=== PATIENT | male | born 1955 | race Caucasian/White ===

== ENCOUNTER 2018-01-25 14:08 | Emergency (ER) | payer MEDICARE, MEDICAID ==
[~2018-01-25] VITALS: Ht 188 cm; Wt 99.8 kg
[~2018-01-25 14:08] MED LIST: CALTRATE 600 +1 EACH PO; CELEXA 20 MG TA20 MG PO; DEPAKOTE ER500 MG PO; ENALAPRIL MALEA10 M1 PO; FLEXERIL PO; FLOMAX; GABITRIL 4 MG PO; HYDROCHLOROTHIA25 M2 PO; IBUPROFEN 800800 M1 PO; KEFLEX500 MG PO; LIORESAL 10 MG10 MG PO; PERCODAN TABLE1 EACH PO; PRIMIDONE 250M250 MG PO; PROSCAR 5MG TABL5 MG PO; TORADOL 10 MG T10 MG PO; ULTRAM 50MG TAB50 MG PO; VASOTEC10 MG PO; VICOPROFEN 2001 EACH PO; VITAMIN D1000 UNI1 PO
[2018-01-25 15:39] VITALS: BP 126/78
== END 2018-01-25 15:39 | disposition home or self-care (01) ==
LOC: M.ERS 14:08
DX: S22.41XA Multiple fractures of ribs, right side, initial encounter for closed fracture (principal); I10 Essential (primary) hypertension; Z88.5 Allergy status to narcotic agent; Z88.0 Allergy status to penicillin; Z88.6 Allergy status to analgesic agent; W01.0XXA Fall on same level from slipping, tripping and stumbling without subsequent striking against object, initial encounter; Y93.89 Activity, other specified; Y92.090 Kitchen in other non-institutional residence as the place of occurrence of the external cause; Y99.8 Other external cause status

== ENCOUNTER 2018-03-31 23:21 | Emergency (ER) | payer MEDICARE, MEDICAID ==
[~2018-03-31] VITALS: Ht 188 cm; Wt 99.8 kg
[2018-03-31] MEDS ORDERED: CELEXA20 MG PO (23:36)
[2018-03-31] MEDS ORDERED: GABITRIL2 MG PO (23:36)
[2018-03-31] MEDS ORDERED: OMEPRAZOLE 20 M20 M1 PO (23:37)
[2018-03-31] MEDS ORDERED: BENTYL 10 MG CA10 M1 PO (23:37)
[2018-03-31] MEDS ORDERED: HYDROCHLOROTHIA25 M2 PO (23:37)
[2018-03-31] MEDS ORDERED: PROSCAR 5MG TABL5 MG PO (23:37)
[2018-03-31] MEDS ORDERED: PRIMIDONE1 GM PO (23:38)
[2018-03-31] MEDS ORDERED: ZINC50 M1 PO (23:38)
[2018-03-31] MEDS ORDERED: ATIVAN1 MG PO (23:38)
[2018-03-31 23:57] LABS: ABSOLUTE EOSINOPHILS 0.1 thou/uL (0.0-0.7); ABSOLUTE LYMPHOCYTES 1.8 thou/uL (0.8-5.3); ABSOLUTE MONOCYTES 0.4 thou/uL (0.0-1.2); BASOPHILS 0.8 %; EOSINOPHILS 1.5 %; HEMATOCRIT 44.6 % (42.0-52.0); HEMOGLOBIN 15.1 gm/dL (14.0-18.0); LYMPHOCYTES 41.5 %; MCH 33.8 pg (26.0-34.0); MCHC 33.9 g/dL (28.0-37.0); MCV 99.8 fL (80.0-100.0); MPV 7.6 fl. (7.2-11.1); NUCLEATED RBCS 0 /100WBC; PLATELET COUNT* 254 thou/uL (150-400); POLYS 46.2 %; RBC 4.47 mil/uL (4.50-6.00); RDW-CV 13.7 % (10.5-14.5); WBC 4.4 thou/uL (4.0-11.0)
[2018-04-01 00:11] LABS: ALBUMIN 3.4 g/dL (3.4-5.0); CALCIUM 8.7 mg/dL (8.5-10.1); CREATININE 0.9 mg/dL (0.6-1.3); POTASSIUM 4.1 mmol/L (3.5-5.1); TOTAL BILIRUBIN 0.2 mg/dL (<0.1-1.0); TOTAL PROTEIN 6.4 g/dL (6.4-8.2)
[2018-04-01 01:48] LABS: URINE BILIRUBIN NEGATIVE (Negative); URINE BLOOD NEGATIVE (Negative); URINE CLARITY CLEAR; URINE COLOR YELLOW; URINE GLUCOSE-RANDOM NEGATIVE (Negative); URINE KETONES NEGATIVE (Negative); URINE LEUKOCYTES-REFLEX NEGATIVE (Negative); URINE NITRITE-REFLEX NEGATIVE (Negative); URINE PROTEIN NEGATIVE (Negative); URINE UROBILINOGEN 0.2 E.U./dl (0.2-1.0)
[2018-04-01 02:01] VITALS: BP 139/81
== END 2018-04-01 02:03 | disposition home or self-care (01) ==
LOC: M.ERS 23:21
PROVIDERS: Personal Emergency Response Attendant
DX: R30.0 Dysuria (principal); I10 Essential (primary) hypertension; Z88.5 Allergy status to narcotic agent; Z88.0 Allergy status to penicillin